=== PATIENT | male | born 1975 | race Caucasian/White ===

== ENCOUNTER 2021-11-03 06:56 | Inpatient (IN) | payer OTHER ==
[~2021-11-03] VITALS: Ht 175.3 cm; Wt 136.1 kg
--- NOTE | 2021-11-03 07:30 | NUR ---
SE RECIBE PTE ALERTA Y ORIENTADO X3 CUAL REFIERE [employer], DOLOR DE BRYSON, FIEBRE Y VOMITOS X3. SE PETE S/V Y PRESENTA SAT O2 91%, P:119, SE CONSULTA CON DR. HATHAWAY Y SE UBICA.
[2021-11-03] MEDS ORDERED: GLUMETZA500 MG PO (07:32)
[2021-11-03] MEDS ORDERED: SIMVASTATIN5 MG PO (07:32)
[2021-11-03] MEDS ORDERED: AMLODIPINE-OLM1 EAC3 PO (07:32)
[2021-11-03] MEDS ORDERED: SEROQUEL XR400 MG PO (07:33)
[2021-11-03] MEDS ORDERED: XANAX2 MG PO (07:33)
--- NOTE | 2021-11-03 08:09 | NUR ---
SE RECIBE PTE MASCULINO DE 46 YRS ALERTA CONCIENTE Y TRANQUILO EN LEYDA CON BARABDAS ELEVADA., PTE ES EVALUADO POR EL DR, MAG QUEIN ORDENA TRATAMIENTO LA CUAL SE EJCUTA. SE MANTIENE BAJO OBSERVACION POR CAMBIOS.
--- NOTE | 2021-11-03 08:20 | NUR ---
ABG'S NOTIFICADOS A MS KITCHEN POR MS Moe RAINES.
--- NOTE | 2021-11-03 09:27 | NUR ---
SE LE COLOCA CANULA NASAL A .3 LTS BAJO MEDIDAS ASEPTICAS, SE CAMBIA DE UBICACION A SECCION K.
== END 2021-11-09 15:36 | disposition home or self-care (01) | DRG 179 ==
LOC: ER 06:56 → MEDJ 18:08
PROVIDERS: ADMIT Internal Medicine; ATTEND Internal Medicine
PROC: BW24ZZZ Computerized Tomography (CT Scan) of Chest and Abdomen (ICD-10-PCS; 2021-11-03)
PROC: 4A12X4Z Monitoring of Cardiac Electrical Activity, External Approach (ICD-10-PCS; 2021-11-03)
PROC: XW033E5 Introduction of Remdesivir Anti-infective into Peripheral Vein, Percutaneous Approach, New Technology Group 5 (ICD-10-PCS; principal; 2021-11-04)
DX: U07.1 COVID-19 (principal); R09.02 Hypoxemia; I10 Essential (primary) hypertension; F12.20 Cannabis dependence, uncomplicated; E11.65 Type 2 diabetes mellitus with hyperglycemia; Z79.4 Long term (current) use of insulin; E66.8 Other obesity; E78.2 Mixed hyperlipidemia